=== PATIENT | male | born 1965 | race Caucasian/White ===

== ENCOUNTER 2016-09-08 15:30 | Inpatient (IN) | payer MEDICARE, MEDICAID ==
[~2016-09-08] VITALS: Ht 180.3 cm; Wt 111.5 kg
[~2016-09-08 15:30] MED LIST: BUPR-47 PO; FLUT1BLS PO; NALT50 PO; OMEP20 PO; QUET200T29 PO
[2016-09-08 15:55] VITALS: BP 117/87
[2016-09-08] MEDS ORDERED: BUPR-47 PO (16:23)
[2016-09-08] MEDS ORDERED: QUET200T PO (16:23)
[2016-09-08] MEDS ORDERED: PROMETHAZINE HCL 25 MG TABLET PO PRN (16:45)
[2016-09-08] MEDS ORDERED: MAG HYDROX/AL HYDROX/SIMETH ES 30 ML SUSPENSION UDCUP PO PRN (16:45)
[2016-09-08] MEDS ORDERED: LOPERAMIDE HCL 2 MG CAPSULE PO PRN (16:45)
[2016-09-08] MEDS ORDERED: MAGNESIUM HYDROXIDE SUSPENSION 30 ML UDCUP PO PRN (16:45)
[2016-09-08] MEDS ORDERED: ACETAMINOPHEN 325 MG TABLET PO PRN (16:45)
[2016-09-08] MEDS ORDERED: OLANZapine 5 MG RAPDIS TABLET PO PRN (16:45)
[2016-09-08] MEDS ORDERED: GuaiFENesin/D-METHORPHAN [SUGAR-FREE] 200-20MG/10 ML SYRUP UDCUP PO PRN (16:45)
[2016-09-08] MEDS ORDERED: HydrOXYzine PAMOATE 50 MG CAPSULE PO PRN (16:45)
[2016-09-08] MEDS: THIAMINE HCL 100 MG TABLET PO SCH (17:43)
[2016-09-08] MEDS ORDERED: INFLUENZA VIRUS VACCINE QVS 2016-17 (3YR+)/PF 60 MCG/0.5 ML SYRINGE IM ONE (17:45)
[2016-09-08 20:13] VITALS: BP 118/75
[2016-09-08] MEDS: OLANZapine 10 MG RAPDIS TABLET PO SCH (20:26)
[2016-09-08] MEDS: ZOLPIDEM TARTRATE 10 MG TABLET PO PRN (21:15)
[2016-09-09 00:06] VITALS: BP 102/65
[2016-09-09 08:18] VITALS: BP 118/81
[2016-09-09] MEDS: MULTIVITAMINS WITH MINERALS, THERAPEUTIC TABLET PO SCH (08:28)
[2016-09-09] MEDS: THIAMINE HCL 100 MG TABLET PO SCH ×2 (08:28→16:33)
[2016-09-09] MEDS: BuPROPion HCL XL 150 MG ER TABLET PO SCH (08:28)
[2016-09-09] MEDS: FOLIC ACID 1 MG TABLET PO SCH (08:28)
[2016-09-09] MEDS: NALTREXONE HCL 50 MG TABLET PO SCH (08:30)
[2016-09-09 08:44] LABS: EOSINOPHILS % (AUTO) 1.9 % (1.0-6.0); HEMATOCRIT 49.3 % (41-53); HEMOGLOBIN 16.1 g/dL (13.5-17.5); LYMPHOCYTES # (AUTO) 1.8 K/uL (1.0-4.8); LYMPHOCYTES % (AUTO) 31.6 % (22.0-44.0); MEAN CORPUSCULAR HEMOGLOBIN 29.9 pg (26.0-34.0); MEAN CORPUSCULAR HGB CONC 32.7 G/dL (31.0-37.0); MEAN CORPUSCULAR VOLUME 92 fL (80-100); MONOCYTES # (AUTO) 0.4 K/uL (0.1-1.0); MONOCYTES % (AUTO) 7.5 % (2.0-9.0); NEUTROPHILS # (AUTO) 3.4 K/uL (1.8-7.7); PLATELET COUNT (AUTO) 142 K/uL (150-450); RED BLOOD CELL COUNT(AUTO) 5.39 MIL/uL (4.50-5.90); RED CELL DISTRIBUTION WIDTH 14.1 % (11.5-14.5); WHITE BLOOD COUNT (AUTO) 5.8 K/uL (4.5-11.0)
[2016-09-09 08:57] LABS: GLUCOSE, URINE (UA) NEGATIVE (NEGATIVE); KETONES,URINE NEGATIVE (NEGATIVE); LEUKOCYTE ESTERASE ,URINE NEGATIVE (NEGATIVE); OCCULT BLOOD,URINE NEGATIVE (NEGATIVE); PROTEIN,URINE NEGATIVE (NEGATIVE)
[2016-09-09 08:59] LABS: ADD UA MICROSCOPIC NO; APPEARANCE,URINE CLEAR (CLEAR)
[2016-09-09] MEDS: LORazepam 2 MG TABLET PO PRN ×2 (09:00→16:33)
[2016-09-09 09:09] LABS: ALANINE AMINOTRANSFERASE 64 U/L (12-78); ALBUMIN 4.1 g/dL (3.4-5.0); ANION GAP 10 mmol/L (8-16); ASPARTATE AMINOTRANSFERASE 31 U/L (15-37); BILIRUBIN,TOTAL 0.5 mg/dL (0.1-1.0); CALCIUM, TOTAL 9.2 mg/dL (8.8-10.5); CARBON DIOXIDE 27 mmol/L (22-29); CHLORIDE 101 mmol/L (98-107); CREATININE 1.08 mg/dL (0.60-1.30); GLOMERULAR FILTR. RATE CALC > 60 mL/min (>60); POTASSIUM 3.9 mmol/L (3.5-5.1); SODIUM SERUM 138 mmol/L (136-145); UREA NITROGEN, BLOOD 15 mg/dL (7-18)
[2016-09-09] MEDS ORDERED: BACITRACIN 28.4 GM OINTMENT TP PRN (11:15)
[2016-09-09] MEDS ORDERED: MAG HYDROX/AL HYDROX/SIMETH ES 30 ML SUSPENSION UDCUP PO PRN (11:15)
[2016-09-09] MEDS ORDERED: IBUPROFEN 600 MG TABLET PO PRN (11:15)
[2016-09-09] MEDS ORDERED: CloNIDine HCL 0.1 MG TABLET PO PRN (11:15)
[2016-09-09] MEDS ORDERED: ONDANSETRON HCL 4 MG TABLET PO PRN (11:15)
[2016-09-09] MEDS ORDERED: BENZOCAINE/MENTHOL LOZENGE MM PRN (11:15)
[2016-09-09] MEDS ORDERED: MAGNESIUM HYDROXIDE SUSPENSION 30 ML UDCUP PO PRN (11:15)
[2016-09-09] MEDS ORDERED: ALBUTEROL SULFATE HFA 90 MCG/PUFF 8 GM INHALER IH PRN (11:15)
[2016-09-09] MEDS ORDERED: PETROLATUM,WHITE 71 GM JELLY TP PRN (11:15)
[2016-09-09 16:17] VITALS: BP 124/77
[2016-09-09] MEDS: OLANZapine 10 MG RAPDIS TABLET PO SCH (20:28)
[2016-09-09] MEDS: ZOLPIDEM TARTRATE 10 MG TABLET PO PRN (20:28)
[2016-09-10 00:38] VITALS: BP 118/72
[2016-09-10 08:42] VITALS: BP 122/92
[2016-09-10] MEDS: LORazepam 2 MG TABLET PO PRN (08:58)
[2016-09-10] MEDS: THIAMINE HCL 100 MG TABLET PO SCH ×2 (08:58→16:50)
[2016-09-10] MEDS: MULTIVITAMINS WITH MINERALS, THERAPEUTIC TABLET PO SCH (08:58)
[2016-09-10] MEDS: BuPROPion HCL XL 150 MG ER TABLET PO SCH (08:58)
[2016-09-10] MEDS: FOLIC ACID 1 MG TABLET PO SCH (08:58)
[2016-09-10] MEDS: NALTREXONE HCL 50 MG TABLET PO SCH (09:00)
[2016-09-10 12:27] VITALS: BP 120/77
[2016-09-10] MEDS ORDERED: BUPR-47 PO (12:57)
[2016-09-10] MEDS ORDERED: OLAN405V IM (12:57)
[2016-09-10] MEDS ORDERED: NALT50 PO (12:57)
[2016-09-10] MEDS ORDERED: HALOPERIDOL 5 MG TABLET PO PRN (13:00)
[2016-09-10] MEDS ORDERED: OLANZAPINE PAMOATE 405 MG/2.7 ML VIAL IM ONE (16:00)
[2016-09-10 16:10] VITALS: BP 131/86
[2016-09-10] MEDS: ZOLPIDEM TARTRATE 10 MG TABLET PO PRN (20:53)
[2016-09-11 00:06] VITALS: BP 118/71
[2016-09-11 08:29] VITALS: BP 123/80
[2016-09-11] MEDS: THIAMINE HCL 100 MG TABLET PO SCH (08:29)
[2016-09-11] MEDS: NALTREXONE HCL 50 MG TABLET PO SCH (08:29)
[2016-09-11] MEDS: BuPROPion HCL XL 150 MG ER TABLET PO SCH (08:29)
[2016-09-11] MEDS: FOLIC ACID 1 MG TABLET PO SCH (08:29)
[2016-09-11] MEDS: MULTIVITAMINS WITH MINERALS, THERAPEUTIC TABLET PO SCH (08:29)
[2016-10-08] MEDS ORDERED: OLANZAPINE PAMOATE 405 MG/2.7 ML VIAL IM SCH (09:00)
[2016-12-24] MEDS ORDERED: QUET200T PO (13:50)
== END 2016-09-11 10:10 | disposition home or self-care (01) | DRG 885 ==
LOC: B2X 16:56
PROVIDERS: ADMIT Psychiatry & Neurology Psychiatry; ATTEND Psychiatry & Neurology Psychiatry
PROC: 3E0234Z Introduction of Serum, Toxoid and Vaccine into Muscle, Percutaneous Approach (ICD-10-PCS; principal; 2016-09-09)
PROC: GZ51ZZZ Individual Psychotherapy, Behavioral (ICD-10-PCS; 2016-09-09)
DX: F25.9 Schizoaffective disorder, unspecified (principal); R45.851 Suicidal ideations; F17.210 Nicotine dependence, cigarettes, uncomplicated; J44.9 Chronic obstructive pulmonary disease, unspecified; J45.909 Unspecified asthma, uncomplicated; N52.9 Male erectile dysfunction, unspecified; F15.10 Other stimulant abuse, uncomplicated; G47.00 Insomnia, unspecified; F32.9 Major depressive disorder, single episode, unspecified; K59.00 Constipation, unspecified; B18.2 Chronic viral hepatitis C; K21.9 Gastro-esophageal reflux disease without esophagitis; Z88.5 Allergy status to narcotic agent; Z98.52 Vasectomy status; Z98.890 Other specified postprocedural states; Z79.899 Other long term (current) drug therapy; Z71.6 Tobacco abuse counseling; Z91.19 Patient's noncompliance with other medical treatment and regimen; Z23 Encounter for immunization; Z71.51 Drug abuse counseling and surveillance of drug abuser
CPT/HCPCS: 87081; 90471; J2358

== ENCOUNTER → 2016-12-10 | Outpatient (CLI) | payer MEDICARE, OTHER ==
[~2016-12-10] MED LIST changes: -FLUT1BLS PO; +OLAN405V IM; -OMEP20 PO; +QUET200T PO; -QUET200T29 PO
== END | disposition home or self-care (01) ==
LOC: RADPV 10:37
PROVIDERS: ATTEND Legal Medicine
DX: J44.9 Chronic obstructive pulmonary disease, unspecified (principal)
CPT/HCPCS: 71020

== ENCOUNTER → 2016-12-24 | Outpatient (CLI) | payer MEDICARE, OTHER ==
[~2016-12-24] VITALS: Ht 180.3 cm; Wt 119.5 kg
== END | disposition home or self-care (01) ==
LOC: SRCNTR 12:54
PROVIDERS: ATTEND Internal Medicine Critical Care Medicine
DX: B19.20 Unspecified viral hepatitis C without hepatic coma (principal); K74.60 Unspecified cirrhosis of liver; E66.01 Morbid (severe) obesity due to excess calories; F25.9 Schizoaffective disorder, unspecified; J44.1 Chronic obstructive pulmonary disease with (acute) exacerbation; Z87.891 Personal history of nicotine dependence
CPT/HCPCS: G0463

== ENCOUNTER → 2016-12-28 | Outpatient (CLI) | payer MEDICARE, OTHER ==
[~2016-12-28] MED LIST changes: -NALT50 PO
== END | disposition home or self-care (01) ==
LOC: RESP 10:41
PROVIDERS: ATTEND Internal Medicine Critical Care Medicine
DX: J44.9 Chronic obstructive pulmonary disease, unspecified (principal)
CPT/HCPCS: 94010; 94726; 94727; 94729

== ENCOUNTER → 2017-01-27 | Outpatient (CLI) | payer MEDICARE, MEDICAID, SELFPAY ==
[~2017-01-27] VITALS: Ht 180.3 cm; Wt 116.0 kg
[~2017-01-27] MED LIST changes: +BENZ1TAB10 PO; +HALO10 PO
[2017-01-27 11:59] VITALS: BP 136/88
== END | disposition home or self-care (01) ==
LOC: SRCNTR 11:56
PROVIDERS: ATTEND Internal Medicine Critical Care Medicine
DX: G47.33 Obstructive sleep apnea (adult) (pediatric) (principal); J44.1 Chronic obstructive pulmonary disease with (acute) exacerbation; E66.01 Morbid (severe) obesity due to excess calories; F25.9 Schizoaffective disorder, unspecified; B19.20 Unspecified viral hepatitis C without hepatic coma; K74.60 Unspecified cirrhosis of liver; Z87.891 Personal history of nicotine dependence; Z86.59 Personal history of other mental and behavioral disorders
CPT/HCPCS: G0463

== ENCOUNTER → 2018-08-01 | Outpatient (CLI) | payer MEDICARE, OTHER ==
[2018-08-05 13:26] LABS: CHOL/HDL RATIO 2.6 (4.2-7.3); HEMOGLOBIN A1C 5.2 % (4.5-6.2)
== END | disposition home or self-care (01) ==
LOC: LABMN 13:00
PROVIDERS: ATTEND Psychiatry & Neurology Psychiatry
DX: F25.9 Schizoaffective disorder, unspecified (principal); E78.00 Pure hypercholesterolemia, unspecified; J44.9 Chronic obstructive pulmonary disease, unspecified; Z88.5 Allergy status to narcotic agent; Z79.899 Other long term (current) drug therapy
CPT/HCPCS: 82947; 83036

== ENCOUNTER → 2019-07-27 | Outpatient (CLI) | payer MEDICARE, OTHER | END | disposition home or self-care (01) | LOC: LABPV 08:55 | PROVIDERS: ATTEND Psychiatry & Neurology Psychiatry | DX: F25.0 Schizoaffective disorder, bipolar type (principal) | CPT/HCPCS: 80173 ==

== ENCOUNTER → 2020-02-01 | Outpatient (CLI) | payer MEDICARE, OTHER | END | disposition home or self-care (01) | LOC: LABPV 14:27 | PROVIDERS: ATTEND Psychiatry & Neurology Psychiatry | DX: F25.0 Schizoaffective disorder, bipolar type (principal) | CPT/HCPCS: 80173 ==

== ENCOUNTER 2020-02-08 10:55 | Inpatient (IN) | payer MEDICARE, MEDICAID ==
[~2020-02-08] VITALS: Ht 180.3 cm; Wt 99.0 kg
[2020-02-08 12:43] VITALS: BP 104/82
[2020-02-08 13:16] VITALS: BP 112/75
[2020-02-08 14:30] VITALS: BP 106/72
[2020-02-08] MEDS ORDERED: TUBERCULIN, PURIFIED PROTEIN DERIVATIVE 5 TU/0.1 ML SYRINGE ID ONE (15:30)
[2020-02-08] MEDS ORDERED: LORazepam 2 MG TABLET PO PRN (15:30)
[2020-02-08] MEDS ORDERED: LOPERAMIDE HCL 2 MG CAPSULE PO PRN (15:30)
[2020-02-08] MEDS ORDERED: HydrOXYzine PAMOATE 50 MG CAPSULE PO PRN (15:30)
[2020-02-08] MEDS ORDERED: ACETAMINOPHEN 325 MG TABLET PO PRN (15:30)
[2020-02-08] MEDS ORDERED: MAG HYDROX/AL HYDROX/SIMETH ES 30 ML SUSPENSION UDCUP PO PRN (15:30)
[2020-02-08] MEDS ORDERED: ZOLPIDEM TARTRATE 10 MG TABLET PO PRN (15:30)
[2020-02-08] MEDS ORDERED: GuaiFENesin/D-METHORPHAN [SUGAR-FREE] 200-20MG/10 ML SYRUP UDCUP PO PRN (15:30)
[2020-02-08] MEDS ORDERED: PROMETHAZINE HCL 25 MG TABLET PO PRN (15:30)
[2020-02-08] MEDS ORDERED: GABAPENTIN 300 MG CAPSULE PO PRN (15:30)
[2020-02-08] MEDS ORDERED: MAGNESIUM HYDROXIDE SUSPENSION 30 ML UDCUP PO PRN (15:30)
[2020-02-08] MEDS ORDERED: OLANZapine 5 MG RAPDIS TABLET PO PRN (15:30)
[2020-02-08] MEDS: QUEtiapine FUMARATE 200 MG TABLET PO SCH (20:49)
[2020-02-08] MEDS: THIAMINE 100 MG TABLET PO SCH (20:50)
[2020-02-09 08:08] LABS: BASOPHILS % (AUTO) 0.8 % (0.0-2.0); EOSINOPHILS % (AUTO) 2.1 % (1.0-6.0); HEMOGLOBIN 14.6 g/dL (13.5-17.5); LYMPHOCYTES # (AUTO) 2.1 K/uL (1.0-4.8); LYMPHOCYTES % (AUTO) 34.7 % (22.0-44.0); MEAN CORPUSCULAR HEMOGLOBIN 30.7 pg (26.0-34.0); MEAN CORPUSCULAR HGB CONC 33.9 G/dL (31.0-37.0); MEAN CORPUSCULAR VOLUME 91 fL (80-100); MONOCYTES # (AUTO) 0.6 K/uL (0.1-1.0); MONOCYTES % (AUTO) 9.7 % (2.0-9.0); NEUTROPHILS # (AUTO) 3.3 K/uL (1.8-7.7); NEUTROPHILS % (AUTO) 52.7 % (40.0-70.0); PLATELET COUNT (AUTO) 178 K/uL (150-450); RED BLOOD CELL COUNT(AUTO) 4.75 MIL/uL (4.50-5.90); RED CELL DISTRIBUTION WIDTH 13.4 % (11.5-14.5)
[2020-02-09 08:28] LABS: ALANINE AMINOTRANSFERASE 25 U/L (12-78); ALBUMIN 3.5 g/dL (3.4-5.0); ALKALINE PHOSPHATASE 92 U/L (46-116); ANION GAP 7 mmol/L (8-16); ASPARTATE AMINOTRANSFERASE 17 U/L (15-37); BILIRUBIN,TOTAL 0.4 mg/dL (0.1-1.0); CALCIUM, TOTAL 9.1 mg/dL (8.8-10.5); CARBON DIOXIDE 29 mmol/L (22-29); CHLORIDE 109 mmol/L (98-107); CHOL/HDL RATIO 2.9 (4.2-7.3); CHOLESTEROL 109 mg/dL (131-200); CREATININE 1.13 mg/dL (0.60-1.30); GLOMERULAR FILTR. RATE CALC > 60 mL/min (>60); GLUCOSE,RANDOM 87 mg/dL (70-110); HDL CHOLESTEROL 38 mg/dL (40-60); LDL CHOL (CALC.) 41 mg/dL (0-130); POTASSIUM 3.9 mmol/L (3.5-5.1); SODIUM SERUM 145 mmol/L (136-145); TOTAL PROTEIN, SERUM 7.3 g/dL (6.4-8.2); TRIGLYCERIDES 149 mg/dL (15-150); UREA NITROGEN, BLOOD 15 mg/dL (7-18)
[2020-02-09] MEDS: FOLIC ACID 1 MG TABLET PO SCH (08:42)
[2020-02-09] MEDS: THIAMINE 100 MG TABLET PO SCH ×2 (08:42→16:27)
[2020-02-09] MEDS: MULTIVITAMINS WITH MINERALS, THERAPEUTIC TABLET PO SCH (08:42)
[2020-02-09 08:49] VITALS: BP 108/69
[2020-02-09 08:52] LABS: HEMOGLOBIN A1C 5.4 % (3.8-5.6)
[2020-02-09] MEDS ORDERED: CloZAPine 25 MG TABLET PO SCH (09:00)
[2020-02-09 09:58] LABS: FREE T4 (FREE THYROXINE) 0.72 ng/dL (0.76-1.46)
[2020-02-09 16:00] VITALS: BP 92/67
[2020-02-09] MEDS: QUEtiapine FUMARATE 200 MG TABLET PO SCH (20:15)
[2020-02-10 04:32] VITALS: BP 103/70
[2020-02-10] MEDS: MULTIVITAMINS WITH MINERALS, THERAPEUTIC TABLET PO SCH (08:21)
[2020-02-10] MEDS: FOLIC ACID 1 MG TABLET PO SCH (08:21)
[2020-02-10] MEDS: THIAMINE 100 MG TABLET PO SCH ×2 (08:21→16:37)
[2020-02-10] MEDS ORDERED: CloZAPine 25 MG TABLET PO SCH ×2 (09:00→21:00)
[2020-02-10 09:04] VITALS: BP 92/61
[2020-02-10 16:42] VITALS: BP 103/78
[2020-02-10] MEDS: QUEtiapine FUMARATE 200 MG TABLET PO SCH (20:53)
[2020-02-11 01:29] VITALS: BP 103/65
[2020-02-11 08:13] VITALS: BP 125/67
[2020-02-11 08:26] VITALS: BP 113/77
[2020-02-11] MEDS: THIAMINE 100 MG TABLET PO SCH ×2 (08:30→16:18)
[2020-02-11] MEDS: MULTIVITAMINS WITH MINERALS, THERAPEUTIC TABLET PO SCH (08:31)
[2020-02-11] MEDS: FOLIC ACID 1 MG TABLET PO SCH (08:31)
[2020-02-11] MEDS ORDERED: CloZAPine 25 MG TABLET PO SCH ×2 (09:00→21:00)
[2020-02-11 16:15] VITALS: BP 109/74
[2020-02-11] MEDS: QUEtiapine FUMARATE 200 MG TABLET PO SCH (20:16)
[2020-02-12 01:31] VITALS: BP 130/73
[2020-02-12 08:24] VITALS: BP 102/64
[2020-02-12] MEDS: MULTIVITAMINS WITH MINERALS, THERAPEUTIC TABLET PO SCH (08:33)
[2020-02-12] MEDS: CloZAPine 25 MG TABLET PO SCH ×2 (08:33→20:35)
[2020-02-12] MEDS: FOLIC ACID 1 MG TABLET PO SCH (08:33)
[2020-02-12] MEDS: THIAMINE 100 MG TABLET PO SCH ×2 (08:33→18:28)
[2020-02-12 16:27] VITALS: BP 107/62
[2020-02-12] MEDS: QUEtiapine FUMARATE 200 MG TABLET PO SCH (20:35)
[2020-02-13 00:18] VITALS: BP 110/71
[2020-02-13 08:46] VITALS: BP 117/67
[2020-02-13] MEDS: THIAMINE 100 MG TABLET PO SCH ×2 (09:03→16:32)
[2020-02-13] MEDS: FOLIC ACID 1 MG TABLET PO SCH (09:03)
[2020-02-13] MEDS: MULTIVITAMINS WITH MINERALS, THERAPEUTIC TABLET PO SCH (09:03)
[2020-02-13] MEDS: CloZAPine 25 MG TABLET PO SCH ×2 (09:03→20:39)
[2020-02-13 16:11] VITALS: BP 115/73
[2020-02-13] MEDS: QUEtiapine FUMARATE 200 MG TABLET PO SCH (20:38)
[2020-02-14 00:11] VITALS: BP 112/70
[2020-02-14] MEDS ORDERED: CloZAPine 25 MG TABLET PO SCH (09:00)
[2020-02-14 09:07] VITALS: BP 131/78
[2020-02-14] MEDS: MULTIVITAMINS WITH MINERALS, THERAPEUTIC TABLET PO SCH (09:09)
[2020-02-14] MEDS: FOLIC ACID 1 MG TABLET PO SCH (09:09)
[2020-02-14] MEDS: THIAMINE 100 MG TABLET PO SCH ×2 (09:09→16:40)
[2020-02-14 16:31] VITALS: BP 106/64
[2020-02-14] MEDS: QUEtiapine FUMARATE 200 MG TABLET PO SCH (20:45)
[2020-02-14] MEDS ORDERED: CloZAPine 100 MG TABLET PO SCH (21:00)
[2020-02-15 08:34] VITALS: BP 102/69
[2020-02-15] MEDS: MULTIVITAMINS WITH MINERALS, THERAPEUTIC TABLET PO SCH (09:00)
[2020-02-15] MEDS: FOLIC ACID 1 MG TABLET PO SCH (09:00)
[2020-02-15] MEDS: THIAMINE 100 MG TABLET PO SCH ×2 (09:00→16:34)
[2020-02-15] MEDS ORDERED: CloZAPine 25 MG TABLET PO SCH (09:00)
[2020-02-15 16:38] VITALS: BP 116/75
[2020-02-15] MEDS: QUEtiapine FUMARATE 200 MG TABLET PO SCH (20:43)
[2020-02-15] MEDS ORDERED: CloZAPine 100 MG TABLET PO SCH (21:00)
[2020-02-16 05:58] VITALS: BP 98/68
[2020-02-16 07:42] LABS: BASOPHILS % (AUTO) 0.5 % (0.0-2.0); EOSINOPHILS % (AUTO) 3.7 % (1.0-6.0); HEMATOCRIT 43.1 % (41-53); HEMOGLOBIN 14.4 g/dL (13.5-17.5); LYMPHOCYTES # (AUTO) 2.3 K/uL (1.0-4.8); LYMPHOCYTES % (AUTO) 36.6 % (22.0-44.0); MEAN CORPUSCULAR HEMOGLOBIN 30.1 pg (26.0-34.0); MEAN CORPUSCULAR HGB CONC 33.5 G/dL (31.0-37.0); MEAN CORPUSCULAR VOLUME 90 fL (80-100); MONOCYTES # (AUTO) 0.7 K/uL (0.1-1.0); MONOCYTES % (AUTO) 10.9 % (2.0-9.0); NEUTROPHILS % (AUTO) 48.3 % (40.0-70.0); PLATELET COUNT (AUTO) 187 K/uL (150-450); RED BLOOD CELL COUNT(AUTO) 4.79 MIL/uL (4.50-5.90); RED CELL DISTRIBUTION WIDTH 13.4 % (11.5-14.5)
[2020-02-16 08:44] VITALS: BP 102/67
[2020-02-16] MEDS: THIAMINE 100 MG TABLET PO SCH ×2 (08:49→16:17)
[2020-02-16] MEDS: MULTIVITAMINS WITH MINERALS, THERAPEUTIC TABLET PO SCH (08:49)
[2020-02-16] MEDS: FOLIC ACID 1 MG TABLET PO SCH (08:49)
[2020-02-16] MEDS ORDERED: CloZAPine 25 MG TABLET PO SCH (09:00)
[2020-02-16 17:13] VITALS: BP 112/81
[2020-02-16] MEDS: QUEtiapine FUMARATE 200 MG TABLET PO SCH (20:02)
[2020-02-16] MEDS ORDERED: CloZAPine 100 MG TABLET PO SCH (21:00)
[2020-02-17 00:16] VITALS: BP 104/62
[2020-02-17 08:32] VITALS: BP 127/78
[2020-02-17] MEDS: FOLIC ACID 1 MG TABLET PO SCH (09:09)
[2020-02-17] MEDS: CloZAPine 100 MG TABLET PO SCH ×2 (09:09→20:34)
[2020-02-17] MEDS: THIAMINE 100 MG TABLET PO SCH ×2 (09:09→16:35)
[2020-02-17] MEDS: MULTIVITAMINS WITH MINERALS, THERAPEUTIC TABLET PO SCH (09:09)
[2020-02-17 16:21] VITALS: BP 108/69
[2020-02-17] MEDS: QUEtiapine FUMARATE 200 MG TABLET PO SCH (20:34)
[2020-02-18 05:57] VITALS: BP 107/68
[2020-02-18 08:45] VITALS: BP 119/83
[2020-02-18] MEDS: CloZAPine 100 MG TABLET PO SCH ×2 (09:10→20:35)
[2020-02-18] MEDS: MULTIVITAMINS WITH MINERALS, THERAPEUTIC TABLET PO SCH (09:10)
[2020-02-18] MEDS: FOLIC ACID 1 MG TABLET PO SCH (09:10)
[2020-02-18] MEDS: THIAMINE 100 MG TABLET PO SCH (09:10)
[2020-02-18 17:50] VITALS: BP 100/62
[2020-02-18] MEDS: QUEtiapine FUMARATE 200 MG TABLET PO SCH (20:36)
[2020-02-19 02:33] VITALS: BP 130/80
[2020-02-19 08:40] VITALS: BP 102/62
[2020-02-19] MEDS ORDERED: CloZAPine 25 MG TABLET PO SCH (09:00)
[2020-02-19] MEDS: MULTIVITAMINS WITH MINERALS, THERAPEUTIC TABLET PO SCH (09:29)
[2020-02-19] MEDS ORDERED: CLOZ100T31 PO ×2 (16:18)
[2020-02-19] MEDS ORDERED: NALT50TA PO (16:18)
[2020-02-19 16:22] VITALS: BP 106/64
[2020-02-19] MEDS ORDERED: CLOZ100T32 PO (16:27)
[2020-02-19] MEDS ORDERED: CloZAPine 100 MG TABLET PO SCH (21:00)
[2020-02-20] MEDS ORDERED: CloZAPine 25 MG TABLET PO SCH (09:00)
[2020-02-20] MEDS ORDERED: CloZAPine 100 MG TABLET PO SCH (21:00)
[2020-02-21] MEDS ORDERED: CloZAPine 100 MG TABLET PO SCH ×2 (09:00→21:00)
== END 2020-02-19 21:53 | disposition home or self-care (01) | DRG 885 ==
LOC: B2S 13:40 → B2X 02-11 01:25
PROVIDERS: ADMIT Psychiatry & Neurology Psychiatry; ATTEND Psychiatry & Neurology Psychiatry
DX: F25.0 Schizoaffective disorder, bipolar type (principal); B19.20 Unspecified viral hepatitis C without hepatic coma; J45.909 Unspecified asthma, uncomplicated; Z87.891 Personal history of nicotine dependence; Z98.52 Vasectomy status
CPT/HCPCS: 80159; 83036; 84439; 84443; 86592; 36415-L1; 36415-TC; 71045-TC; 80061-TC

== ENCOUNTER → 2020-02-22 | Outpatient (CLI) | payer MEDICARE, OTHER, SELFPAY ==
[~2020-02-22] MED LIST changes: -BENZ1TAB10 PO; -BUPR-47 PO; +CLOZ100T31 PO; +CLOZ100T32 PO; -HALO10 PO; +NALT50TA PO; -OLAN405V IM; -QUET200T PO
[2020-02-22 18:31] LABS: BASOPHILS % (AUTO) 0.9 % (0.0-2.0); EOSINOPHILS % (AUTO) 1.2 % (1.0-6.0); HEMATOCRIT 42.1 % (41-53); HEMOGLOBIN 14.1 g/dL (13.5-17.5); LYMPHOCYTES # (AUTO) 0.9 K/uL (1.0-4.8); LYMPHOCYTES % (AUTO) 14.5 % (22.0-44.0); MEAN CORPUSCULAR HEMOGLOBIN 30.4 pg (26.0-34.0); MEAN CORPUSCULAR HGB CONC 33.4 G/dL (31.0-37.0); MEAN CORPUSCULAR VOLUME 91 fL (80-100); MONOCYTES # (AUTO) 0.7 K/uL (0.1-1.0); NEUTROPHILS # (AUTO) 4.6 K/uL (1.8-7.7); NEUTROPHILS % (AUTO) 72.4 % (40.0-70.0); PLATELET COUNT (AUTO) 148 K/uL (150-450); RED BLOOD CELL COUNT(AUTO) 4.64 MIL/uL (4.50-5.90); RED CELL DISTRIBUTION WIDTH 13.5 % (11.5-14.5)
[2020-02-22 18:58] LABS: PLATELET MORPHOLOGY COMMENT GIANT PLTS PRESENT
== END | disposition home or self-care (01) ==
LOC: LABMN 10:30
PROVIDERS: ATTEND Psychiatry & Neurology Psychiatry
DX: F25.0 Schizoaffective disorder, bipolar type (principal)
CPT/HCPCS: 80159

== ENCOUNTER → 2020-02-29 | Outpatient (CLI) | payer MEDICARE, OTHER, SELFPAY ==
[2020-02-29 15:09] LABS: EOSINOPHILS % (AUTO) 2.7 % (1.0-6.0); HEMOGLOBIN 13.9 g/dL (13.5-17.5); LYMPHOCYTES # (AUTO) 1.3 K/uL (1.0-4.8); LYMPHOCYTES % (AUTO) 22.4 % (22.0-44.0); MEAN CORPUSCULAR VOLUME 91 fL (80-100); MONOCYTES # (AUTO) 0.6 K/uL (0.1-1.0); NEUTROPHILS # (AUTO) 3.8 K/uL (1.8-7.7); NEUTROPHILS % (AUTO) 63.9 % (40.0-70.0); PLATELET COUNT (AUTO) 243 K/uL (150-450); RED BLOOD CELL COUNT(AUTO) 4.61 MIL/uL (4.50-5.90)
== END | disposition home or self-care (01) ==
LOC: LABMN 09:55
PROVIDERS: ATTEND Psychiatry & Neurology Psychiatry
DX: F25.0 Schizoaffective disorder, bipolar type (principal)

== ENCOUNTER → 2020-03-07 | Outpatient (CLI) | payer MEDICARE, OTHER, SELFPAY ==
[2020-03-07 15:42] LABS: BASOPHILS % (AUTO) 1.1 % (0.0-2.0); EOSINOPHILS % (AUTO) 1.3 % (1.0-6.0); HEMATOCRIT 45.9 % (41-53); HEMOGLOBIN 14.8 g/dL (13.5-17.5); LYMPHOCYTES # (AUTO) 1.3 K/uL (1.0-4.8); LYMPHOCYTES % (AUTO) 14.9 % (22.0-44.0); MEAN CORPUSCULAR HEMOGLOBIN 29.6 pg (26.0-34.0); MEAN CORPUSCULAR HGB CONC 32.2 G/dL (31.0-37.0); MEAN CORPUSCULAR VOLUME 92 fL (80-100); MONOCYTES # (AUTO) 0.9 K/uL (0.1-1.0); MONOCYTES % (AUTO) 9.8 % (2.0-9.0); NEUTROPHILS # (AUTO) 6.4 K/uL (1.8-7.7); NEUTROPHILS % (AUTO) 72.9 % (40.0-70.0); PLATELET COUNT (AUTO) 206 K/uL (150-450); RED BLOOD CELL COUNT(AUTO) 4.98 MIL/uL (4.50-5.90); RED CELL DISTRIBUTION WIDTH 14.2 % (11.5-14.5)
== END | disposition home or self-care (01) ==
LOC: LABMN 10:27
PROVIDERS: ATTEND Psychiatry & Neurology Psychiatry
DX: F25.0 Schizoaffective disorder, bipolar type (principal)

== ENCOUNTER → 2020-03-14 | Outpatient (CLI) | payer MEDICARE, OTHER, SELFPAY ==
[2020-03-14 14:16] LABS: BASOPHILS % (AUTO) 1.3 % (0.0-2.0); EOSINOPHILS % (AUTO) 1.6 % (1.0-6.0); HEMATOCRIT 44.1 % (41-53); HEMOGLOBIN 14.6 g/dL (13.5-17.5); LYMPHOCYTES # (AUTO) 1.3 K/uL (1.0-4.8); LYMPHOCYTES % (AUTO) 21.6 % (22.0-44.0); MEAN CORPUSCULAR HEMOGLOBIN 30.2 pg (26.0-34.0); MEAN CORPUSCULAR HGB CONC 33.1 G/dL (31.0-37.0); MEAN CORPUSCULAR VOLUME 91 fL (80-100); MONOCYTES # (AUTO) 0.5 K/uL (0.1-1.0); MONOCYTES % (AUTO) 8.8 % (2.0-9.0); NEUTROPHILS # (AUTO) 4.1 K/uL (1.8-7.7); NEUTROPHILS % (AUTO) 66.7 % (40.0-70.0); PLATELET COUNT (AUTO) 253 K/uL (150-450); RED BLOOD CELL COUNT(AUTO) 4.83 MIL/uL (4.50-5.90); RED CELL DISTRIBUTION WIDTH 14.1 % (11.5-14.5)
== END | disposition home or self-care (01) ==
LOC: LABMN 10:30
PROVIDERS: ATTEND Psychiatry & Neurology Psychiatry
DX: F25.0 Schizoaffective disorder, bipolar type (principal)

== ENCOUNTER → 2020-03-21 | Outpatient (CLI) | payer MEDICARE, OTHER ==
[2020-04-27 11:11] LABS: BASOPHILS % (AUTO) 1.8 % (0.0-2.0); HEMATOCRIT 46.2 % (41-53); HEMOGLOBIN 14.8 g/dL (13.5-17.5); LYMPHOCYTES # (AUTO) 1.7 K/uL (1.0-4.8); LYMPHOCYTES % (AUTO) 23.8 % (22.0-44.0); MEAN CORPUSCULAR HEMOGLOBIN 29.9 pg (26.0-34.0); MEAN CORPUSCULAR HGB CONC 32.1 G/dL (31.0-37.0); MEAN CORPUSCULAR VOLUME 93 fL (80-100); MONOCYTES % (AUTO) 11.9 % (2.0-9.0); NEUTROPHILS # (AUTO) 4.3 K/uL (1.8-7.7); NEUTROPHILS % (AUTO) 60.5 % (40.0-70.0); PLATELET COUNT (AUTO) 218 K/uL (150-450); RED BLOOD CELL COUNT(AUTO) 4.96 MIL/uL (4.50-5.90); RED CELL DISTRIBUTION WIDTH 14.6 % (11.5-14.5)
[2020-04-27 11:12] LABS: MONOCYTES # (AUTO) 0.8 K/uL (0.1-1.0)
== END | disposition home or self-care (01) ==
LOC: LABMN 09:15
PROVIDERS: ATTEND Psychiatry & Neurology Psychiatry
DX: F25.0 Schizoaffective disorder, bipolar type (principal)

== ENCOUNTER → 2020-03-28 | Outpatient (CLI) | payer MEDICARE, OTHER ==
[2020-03-28 15:32] LABS: BASOPHILS % (AUTO) 0.9 % (0.0-2.0); EOSINOPHILS % (AUTO) 1.1 % (1.0-6.0); HEMATOCRIT 43.8 % (41-53); HEMOGLOBIN 14.6 g/dL (13.5-17.5); LYMPHOCYTES # (AUTO) 1.4 K/uL (1.0-4.8); LYMPHOCYTES % (AUTO) 15.2 % (22.0-44.0); MEAN CORPUSCULAR HEMOGLOBIN 30.4 pg (26.0-34.0); MEAN CORPUSCULAR HGB CONC 33.3 G/dL (31.0-37.0); MEAN CORPUSCULAR VOLUME 91 fL (80-100); MONOCYTES # (AUTO) 0.8 K/uL (0.1-1.0); MONOCYTES % (AUTO) 8.7 % (2.0-9.0); NEUTROPHILS # (AUTO) 6.6 K/uL (1.8-7.7); NEUTROPHILS % (AUTO) 74.1 % (40.0-70.0); PLATELET COUNT (AUTO) 199 K/uL (150-450); RED BLOOD CELL COUNT(AUTO) 4.79 MIL/uL (4.50-5.90)
== END | disposition home or self-care (01) ==
LOC: LABPV 10:30
PROVIDERS: ATTEND Psychiatry & Neurology Psychiatry
DX: F25.0 Schizoaffective disorder, bipolar type (principal)

== ENCOUNTER → 2020-04-04 | Outpatient (CLI) | payer MEDICARE, OTHER ==
[2020-04-05 20:41] LABS: BASOPHILS % (AUTO) 2.8 % (0.0-2.0); EOSINOPHILS % (AUTO) 1.6 % (1.0-6.0); HEMATOCRIT 43.7 % (41-53); LYMPHOCYTES # (AUTO) 1.4 K/uL (1.0-4.8); LYMPHOCYTES % (AUTO) 22.3 % (22.0-44.0); MEAN CORPUSCULAR HEMOGLOBIN 29.9 pg (26.0-34.0); MEAN CORPUSCULAR HGB CONC 32.1 G/dL (31.0-37.0); MEAN CORPUSCULAR VOLUME 93 fL (80-100); MONOCYTES # (AUTO) 0.8 K/uL (0.1-1.0); MONOCYTES % (AUTO) 11.8 % (2.0-9.0); NEUTROPHILS # (AUTO) 3.9 K/uL (1.8-7.7); NEUTROPHILS % (AUTO) 61.5 % (40.0-70.0); PLATELET COUNT (AUTO) 163 K/uL (150-450); RED BLOOD CELL COUNT(AUTO) 4.68 MIL/uL (4.50-5.90); RED CELL DISTRIBUTION WIDTH 14.1 % (11.5-14.5)
== END | disposition home or self-care (01) ==
LOC: LABPV 09:30
PROVIDERS: ATTEND Psychiatry & Neurology Psychiatry
DX: F25.0 Schizoaffective disorder, bipolar type (principal)

== ENCOUNTER → 2020-04-11 | Outpatient (CLI) | payer MEDICARE, OTHER, SELFPAY ==
[2020-04-11 15:31] LABS: BASOPHILS % (AUTO) 1.3 % (0.0-2.0); EOSINOPHILS % (AUTO) 1.7 % (1.0-6.0); HEMATOCRIT 42.5 % (41-53); HEMOGLOBIN 14.3 g/dL (13.5-17.5); LYMPHOCYTES # (AUTO) 1.3 K/uL (1.0-4.8); LYMPHOCYTES % (AUTO) 20.7 % (22.0-44.0); MEAN CORPUSCULAR HEMOGLOBIN 30.5 pg (26.0-34.0); MEAN CORPUSCULAR HGB CONC 33.5 G/dL (31.0-37.0); MEAN CORPUSCULAR VOLUME 91 fL (80-100); MONOCYTES # (AUTO) 0.7 K/uL (0.1-1.0); MONOCYTES % (AUTO) 10.2 % (2.0-9.0); NEUTROPHILS # (AUTO) 4.3 K/uL (1.8-7.7); NEUTROPHILS % (AUTO) 66.1 % (40.0-70.0); PLATELET COUNT (AUTO) 193 K/uL (150-450); RED BLOOD CELL COUNT(AUTO) 4.67 MIL/uL (4.50-5.90)
== END | disposition home or self-care (01) ==
LOC: LABPV 11:44
PROVIDERS: ATTEND Psychiatry & Neurology Psychiatry
DX: F25.0 Schizoaffective disorder, bipolar type (principal)

== ENCOUNTER → 2020-04-18 | Outpatient (CLI) | payer MEDICARE, OTHER, SELFPAY ==
[2020-04-18 15:44] LABS: BASOPHILS % (AUTO) 3.5 % (0.0-2.0); EOSINOPHILS % (AUTO) 0.9 % (1.0-6.0); HEMATOCRIT 44.4 % (41-53); HEMOGLOBIN 14.6 g/dL (13.5-17.5); MEAN CORPUSCULAR HEMOGLOBIN 30.1 pg (26.0-34.0); MEAN CORPUSCULAR HGB CONC 32.8 G/dL (31.0-37.0); MEAN CORPUSCULAR VOLUME 92 fL (80-100); MONOCYTES # (AUTO) 0.5 K/uL (0.1-1.0); MONOCYTES % (AUTO) 9.6 % (2.0-9.0); NEUTROPHILS # (AUTO) 3.5 K/uL (1.8-7.7); PLATELET COUNT (AUTO) 199 K/uL (150-450); RED BLOOD CELL COUNT(AUTO) 4.83 MIL/uL (4.50-5.90); RED CELL DISTRIBUTION WIDTH 14.1 % (11.5-14.5)
== END | disposition home or self-care (01) ==
LOC: LABPV 09:45
PROVIDERS: ATTEND Psychiatry & Neurology Psychiatry
DX: F25.0 Schizoaffective disorder, bipolar type (principal)

== ENCOUNTER → 2020-04-26 | Outpatient (CLI) | payer MEDICARE, OTHER, SELFPAY ==
[2020-04-26 14:56] LABS: BASOPHILS % (AUTO) 0.8 % (0.0-2.0); EOSINOPHILS % (AUTO) 2.6 % (1.0-6.0); HEMATOCRIT 48.5 % (41-53); LYMPHOCYTES # (AUTO) 1.5 K/uL (1.0-4.8); LYMPHOCYTES % (AUTO) 14.8 % (22.0-44.0); MEAN CORPUSCULAR HGB CONC 32.9 G/dL (31.0-37.0); MEAN CORPUSCULAR VOLUME 91 fL (80-100); MONOCYTES # (AUTO) 1.3 K/uL (0.1-1.0); MONOCYTES % (AUTO) 12.5 % (2.0-9.0); NEUTROPHILS # (AUTO) 7.1 K/uL (1.8-7.7); NEUTROPHILS % (AUTO) 69.3 % (40.0-70.0); PLATELET COUNT (AUTO) 255 K/uL (150-450); RED BLOOD CELL COUNT(AUTO) 5.32 MIL/uL (4.50-5.90); RED CELL DISTRIBUTION WIDTH 14.4 % (11.5-14.5)
== END | disposition home or self-care (01) ==
LOC: LABPV 11:30
PROVIDERS: ATTEND Psychiatry & Neurology Psychiatry
DX: F25.0 Schizoaffective disorder, bipolar type (principal)

== ENCOUNTER → 2020-05-02 | Outpatient (CLI) | payer MEDICARE, OTHER ==
[2020-05-02 15:36] LABS: BASOPHILS % (AUTO) 1.4 % (0.0-2.0); EOSINOPHILS % (AUTO) 0.8 % (1.0-6.0); HEMATOCRIT 45.5 % (41-53); HEMOGLOBIN 14.9 g/dL (13.5-17.5); LYMPHOCYTES # (AUTO) 1.5 K/uL (1.0-4.8); LYMPHOCYTES % (AUTO) 21.2 % (22.0-44.0); MEAN CORPUSCULAR HEMOGLOBIN 29.8 pg (26.0-34.0); MEAN CORPUSCULAR HGB CONC 32.8 G/dL (31.0-37.0); MEAN CORPUSCULAR VOLUME 91 fL (80-100); MONOCYTES # (AUTO) 0.9 K/uL (0.1-1.0); MONOCYTES % (AUTO) 12.1 % (2.0-9.0); NEUTROPHILS # (AUTO) 4.7 K/uL (1.8-7.7); NEUTROPHILS % (AUTO) 64.5 % (40.0-70.0); PLATELET COUNT (AUTO) 251 K/uL (150-450); RED BLOOD CELL COUNT(AUTO) 5.01 MIL/uL (4.50-5.90); RED CELL DISTRIBUTION WIDTH 13.7 % (11.5-14.5)
== END | disposition home or self-care (01) ==
LOC: LABPV 13:14
PROVIDERS: ATTEND Psychiatry & Neurology Psychiatry
DX: F25.0 Schizoaffective disorder, bipolar type (principal)

== ENCOUNTER → 2020-05-09 | Outpatient (CLI) | payer MEDICARE, OTHER ==
[2020-05-09 14:19] LABS: BASOPHILS % (AUTO) 0.7 % (0.0-2.0); EOSINOPHILS % (AUTO) 1.3 % (1.0-6.0); HEMATOCRIT 47.8 % (41-53); HEMOGLOBIN 15.8 g/dL (13.5-17.5); LYMPHOCYTES # (AUTO) 1.3 K/uL (1.0-4.8); LYMPHOCYTES % (AUTO) 10.2 % (22.0-44.0); MEAN CORPUSCULAR HGB CONC 33.2 G/dL (31.0-37.0); MEAN CORPUSCULAR VOLUME 90 fL (80-100); MONOCYTES # (AUTO) 1.1 K/uL (0.1-1.0); MONOCYTES % (AUTO) 8.2 % (2.0-9.0); NEUTROPHILS # (AUTO) 10.5 K/uL (1.8-7.7); NEUTROPHILS % (AUTO) 79.6 % (40.0-70.0); PLATELET COUNT (AUTO) 243 K/uL (150-450); RED BLOOD CELL COUNT(AUTO) 5.29 MIL/uL (4.50-5.90); RED CELL DISTRIBUTION WIDTH 13.9 % (11.5-14.5)
== END | disposition home or self-care (01) ==
LOC: LABPV 11:34
PROVIDERS: ATTEND Psychiatry & Neurology Psychiatry
DX: F25.0 Schizoaffective disorder, bipolar type (principal)

== ENCOUNTER → 2020-05-20 | Outpatient (CLI) | payer MEDICARE, OTHER, SELFPAY ==
[~2020-05-20] MED LIST changes: +SENN8.6T20 PO; +TOPI25 PO
[2020-05-20 14:22] LABS: BASOPHILS % (AUTO) 1.1 % (0.0-2.0); EOSINOPHILS % (AUTO) 2.2 % (1.0-6.0); HEMATOCRIT 44.2 % (41-53); HEMOGLOBIN 14.6 g/dL (13.5-17.5); LYMPHOCYTES # (AUTO) 1.3 K/uL (1.0-4.8); LYMPHOCYTES % (AUTO) 17.3 % (22.0-44.0); MEAN CORPUSCULAR HEMOGLOBIN 29.8 pg (26.0-34.0); MEAN CORPUSCULAR HGB CONC 33.1 G/dL (31.0-37.0); MEAN CORPUSCULAR VOLUME 90 fL (80-100); MONOCYTES # (AUTO) 0.5 K/uL (0.1-1.0); MONOCYTES % (AUTO) 7.5 % (2.0-9.0); NEUTROPHILS # (AUTO) 5.3 K/uL (1.8-7.7); NEUTROPHILS % (AUTO) 71.9 % (40.0-70.0); PLATELET COUNT (AUTO) 201 K/uL (150-450); RED CELL DISTRIBUTION WIDTH 13.7 % (11.5-14.5)
== END | disposition home or self-care (01) ==
LOC: LABPV 09:45
PROVIDERS: ATTEND Psychiatry & Neurology Psychiatry
DX: F25.0 Schizoaffective disorder, bipolar type (principal)

== ENCOUNTER → 2020-05-31 | Outpatient (CLI) | payer MEDICARE, MEDICAID ==
[~2020-05-31] MED LIST changes: +CLOZ100T PO; -CLOZ100T32 PO; +GABA-1201 PO; +NALT50TA6 PO; +OMEG-135 PO; -SENN8.6T20 PO; +TOPI25TA42 PO
[2020-05-31 15:35] LABS: BASOPHILS % (AUTO) 0.9 % (0.0-2.0); EOSINOPHILS % (AUTO) 3.1 % (1.0-6.0); HEMATOCRIT 46.3 % (41-53); HEMOGLOBIN 15.5 g/dL (13.5-17.5); LYMPHOCYTES % (AUTO) 30.2 % (22.0-44.0); MEAN CORPUSCULAR HEMOGLOBIN 30.2 pg (26.0-34.0); MEAN CORPUSCULAR HGB CONC 33.4 G/dL (31.0-37.0); MEAN CORPUSCULAR VOLUME 90 fL (80-100); MONOCYTES # (AUTO) 0.7 K/uL (0.1-1.0); MONOCYTES % (AUTO) 10.4 % (2.0-9.0); NEUTROPHILS # (AUTO) 3.7 K/uL (1.8-7.7); NEUTROPHILS % (AUTO) 55.4 % (40.0-70.0); PLATELET COUNT (AUTO) 221 K/uL (150-450); RED BLOOD CELL COUNT(AUTO) 5.13 MIL/uL (4.50-5.90); RED CELL DISTRIBUTION WIDTH 13.7 % (11.5-14.5)
== END | disposition home or self-care (01) ==
LOC: LABPV 12:33
PROVIDERS: ATTEND Psychiatry & Neurology Psychiatry
DX: F25.0 Schizoaffective disorder, bipolar type (principal)

== ENCOUNTER → 2020-06-06 | Outpatient (CLI) | payer MEDICARE, MEDICAID ==
[2020-06-06 21:28] LABS: BASOPHILS % (AUTO) 0.9 % (0.0-2.0); EOSINOPHILS % (AUTO) 1.6 % (1.0-6.0); HEMATOCRIT 45.8 % (41-53); HEMOGLOBIN 15.6 g/dL (13.5-17.5); LYMPHOCYTES # (AUTO) 1.5 K/uL (1.0-4.8); LYMPHOCYTES % (AUTO) 17.6 % (22.0-44.0); MEAN CORPUSCULAR HEMOGLOBIN 30.8 pg (26.0-34.0); MEAN CORPUSCULAR VOLUME 91 fL (80-100); MONOCYTES # (AUTO) 0.7 K/uL (0.1-1.0); MONOCYTES % (AUTO) 8.7 % (2.0-9.0); NEUTROPHILS % (AUTO) 71.2 % (40.0-70.0); PLATELET COUNT (AUTO) 230 K/uL (150-450); RED BLOOD CELL COUNT(AUTO) 5.06 MIL/uL (4.50-5.90); RED CELL DISTRIBUTION WIDTH 13.6 % (11.5-14.5)
== END | disposition home or self-care (01) ==
LOC: LABPV 11:44
PROVIDERS: ATTEND Psychiatry & Neurology Psychiatry
DX: F25.0 Schizoaffective disorder, bipolar type (principal)

== ENCOUNTER → 2020-06-12 | Outpatient (CLI) | payer MEDICARE, MEDICAID ==
[2020-06-12 23:24] LABS: BASOPHILS % (AUTO) 0.8 % (0.0-2.0); HEMOGLOBIN 16.5 g/dL (13.5-17.5); LYMPHOCYTES # (AUTO) 1.7 K/uL (1.0-4.8); LYMPHOCYTES % (AUTO) 23.2 % (22.0-44.0); MEAN CORPUSCULAR HEMOGLOBIN 29.7 pg (26.0-34.0); MEAN CORPUSCULAR HGB CONC 32.9 G/dL (31.0-37.0); MEAN CORPUSCULAR VOLUME 90 fL (80-100); MONOCYTES # (AUTO) 0.5 K/uL (0.1-1.0); MONOCYTES % (AUTO) 7.5 % (2.0-9.0); NEUTROPHILS # (AUTO) 4.8 K/uL (1.8-7.7); NEUTROPHILS % (AUTO) 66.5 % (40.0-70.0); RED BLOOD CELL COUNT(AUTO) 5.54 MIL/uL (4.50-5.90)
[2020-06-13 00:22] LABS: PLATELET COUNT (AUTO) 250 K/uL (150-450)
== END | disposition home or self-care (01) ==
LOC: LABPV 10:58
PROVIDERS: ATTEND Psychiatry & Neurology Psychiatry
DX: F25.0 Schizoaffective disorder, bipolar type (principal)

== ENCOUNTER → 2020-06-20 | Outpatient (CLI) | payer MEDICARE, OTHER ==
[2020-06-20 18:50] LABS: BASOPHILS % (AUTO) 1.1 % (0.0-2.0); EOSINOPHILS % (AUTO) 2.8 % (1.0-6.0); HEMATOCRIT 42.1 % (41-53); HEMOGLOBIN 14.2 g/dL (13.5-17.5); LYMPHOCYTES # (AUTO) 1.5 K/uL (1.0-4.8); LYMPHOCYTES % (AUTO) 19.9 % (22.0-44.0); MEAN CORPUSCULAR HEMOGLOBIN 30.1 pg (26.0-34.0); MEAN CORPUSCULAR HGB CONC 33.6 G/dL (31.0-37.0); MEAN CORPUSCULAR VOLUME 90 fL (80-100); MONOCYTES # (AUTO) 0.9 K/uL (0.1-1.0); MONOCYTES % (AUTO) 11.4 % (2.0-9.0); NEUTROPHILS % (AUTO) 64.8 % (40.0-70.0); PLATELET COUNT (AUTO) 173 K/uL (150-450); RED CELL DISTRIBUTION WIDTH 13.6 % (11.5-14.5)
== END | disposition home or self-care (01) ==
LOC: LABPV 13:21
PROVIDERS: ATTEND Psychiatry & Neurology Psychiatry
DX: F25.0 Schizoaffective disorder, bipolar type (principal)

== ENCOUNTER → 2020-07-11 | Outpatient (CLI) | payer MEDICARE, OTHER ==
[~2020-07-11] MED LIST changes: -CLOZ100T PO; +CLOZ25TA4 PO; +DUTA.5 PO; +FOLI0.4T6 PO; +Glycopyrrolate PO; +LITH300C3 PO; +MULT-1239 PO; -NALT50TA6 PO; +TAMS-13 PO; +THIA100T80 PO; -TOPI25TA42 PO
[2020-07-11 17:09] LABS: BASOPHILS % (AUTO) 2.4 % (0.0-2.0); EOSINOPHILS % (AUTO) 2.5 % (1.0-6.0); HEMATOCRIT 45.6 % (41-53); HEMOGLOBIN 15.2 g/dL (13.5-17.5); LYMPHOCYTES % (AUTO) 24.8 % (22.0-44.0); MEAN CORPUSCULAR HEMOGLOBIN 29.4 pg (26.0-34.0); MEAN CORPUSCULAR HGB CONC 33.4 G/dL (31.0-37.0); MEAN CORPUSCULAR VOLUME 88 fL (80-100); MONOCYTES # (AUTO) 0.7 K/uL (0.1-1.0); MONOCYTES % (AUTO) 9.2 % (2.0-9.0); NEUTROPHILS # (AUTO) 4.9 K/uL (1.8-7.7); NEUTROPHILS % (AUTO) 61.1 % (40.0-70.0); PLATELET COUNT (AUTO) 258 K/uL (150-450); RED BLOOD CELL COUNT(AUTO) 5.17 MIL/uL (4.50-5.90)
== END | disposition home or self-care (01) ==
LOC: LABPV 13:02
PROVIDERS: ATTEND Psychiatry & Neurology Psychiatry
DX: F25.0 Schizoaffective disorder, bipolar type (principal)

== ENCOUNTER → 2020-08-01 | Outpatient (CLI) | payer MEDICARE, OTHER ==
[2020-08-02 04:14] LABS: EOSINOPHILS % (AUTO) 1.1 % (1.0-6.0); HEMATOCRIT 48.1 % (41-53); HEMOGLOBIN 15.4 g/dL (13.5-17.5); LYMPHOCYTES # (AUTO) 1.8 K/uL (1.0-4.8); LYMPHOCYTES % (AUTO) 17.4 % (22.0-44.0); MEAN CORPUSCULAR HEMOGLOBIN 29.3 pg (26.0-34.0); MEAN CORPUSCULAR VOLUME 92 fL (80-100); MONOCYTES # (AUTO) 0.8 K/uL (0.1-1.0); MONOCYTES % (AUTO) 7.3 % (2.0-9.0); NEUTROPHILS # (AUTO) 7.7 K/uL (1.8-7.7); NEUTROPHILS % (AUTO) 73.2 % (40.0-70.0); PLATELET COUNT (AUTO) 244 K/uL (150-450); RED BLOOD CELL COUNT(AUTO) 5.25 MIL/uL (4.50-5.90); RED CELL DISTRIBUTION WIDTH 15.5 % (11.5-14.5)
== END | disposition home or self-care (01) ==
LOC: LABPV 12:35
PROVIDERS: ATTEND Psychiatry & Neurology Psychiatry
DX: F25.0 Schizoaffective disorder, bipolar type (principal)